=== PATIENT | male | born 2000 | race African-American/Black ===

== ENCOUNTER 2024-04-28 19:30 | Emergency (ER) | payer OTHER ==
[~2024-04-28] VITALS: Ht 175.3 cm; Wt 78.5 kg
[2024-04-28 19:45] VITALS: PULSE 81; RESP 18; TEMP 98.1
[2024-04-28 21:40] VITALS: BP 129/67; PULSE 81; RESP 18; TEMP 98.1; O2SAT 97
== END 2024-04-28 20:12 | disposition home or self-care (01) ==
LOC: FSED 19:38
DX: R51.9 Headache, unspecified (principal); V43.62XA Car passenger injured in collision with other type car in traffic accident, initial encounter; Y92.488 Other paved roadways as the place of occurrence of the external cause
CPT/HCPCS: 99283